=== PATIENT | male | born 1965 | race Caucasian/White ===

== ENCOUNTER → 2020-10-25 15:30 | Outpatient (CLI) | payer BC, SELFPAY ==
[2020-10-25 18:08] LABS: Hematocrit 47.9 % (40-54); Hemoglobin 15.3 g/dL (13.0-16.5); Mean Corp Hgb Conc 31.9 g/dL (32-36); Mean Corpuscular Hgb 28.7 pg (27.0-32.0); Mean Corpuscular Volume 89.7 fL (80-94); Platelet Count 295 K/mm3 (150-450); RBC Distribution Width CV 12.7 % (11.6-14.6); RBC Distribution Width SD 41.5 fl (35.1-43.9); Red Blood Count 5.34 M/mm3 (4.6-6.2); White Blood Count 5.5 K/mm3 (4.4-11.0)
[2020-10-25 18:19] LABS: Erythrocyte Sedimentation Rate 5 mm/hr (0-20)
== END ==
PROVIDERS: Referring Provider Internal Medicine Gastroenterology; Visit Provider Internal Medicine Gastroenterology
DX: K62.5 Hemorrhage of anus and rectum (principal)
CPT/HCPCS: 36415; 85027; 85652

== ENCOUNTER → 2025-02-25 | Outpatient (CLI) | payer BC, SELFPAY ==
--- NOTE | 2025-02-25 08:50 | RAD_ITS ---
PROCEDURE: ABDOMEN SINGLE VIEW 02/25/2025 REASON FOR EXAM: HX OF URINARY CALCULI TECHNIQUE: A single AP view of the abdomen was obtained COMPARISON: None. FINDINGS: RIGHT nephroureteral stent is present. Proximal pigtail appears located inferior to the LEFT renal silhouette likely displaced inferiorly into the proximal ureter. There is some redundancy within the expected location of the bladder. 2 calculi project over the proximal aspect of the nephroureteral stent, measuring up to 9 mm. Additional RIGHT pelvic calculi up to 2 mm could reflect bladder calculi and/or pelvic vascular phleboliths. No visible bowel dilatation. RAD/Abdomen Single View IMPRESSION: 1. Likely inferior displacement + of the nephroureteral stent with proximal pig tail projecting over the expected location of the proximal LEFT ureter. Recommend urologic follow-up. 2. Findings are compatible with ureteral calculi proximally up to 9 mm. Additi onal pelvic calculi projecting over the RIGHT pelvis up to 2 mm could reflect bladder calculi and/or pelvic vascular phleboli ths. Reading Location: [id number]
== END | disposition home or self-care (01) ==
LOC: RAD 08:45
PROVIDERS: Referring Provider Urology; Visit Provider Urology
DX: Z87.442 Personal history of urinary calculi (principal)
CPT/HCPCS: 74018

== ENCOUNTER → 2025-03-01 | Outpatient (CLI) | payer BC, SELFPAY ==
--- NOTE | 2025-02-26 13:30 | URE_PTH ---
PATIENT: CARLOS VILLASEÑOR LOC: [facility] U#:[id number] AGE/SX: 59/M ROOM: RE03/01/[address]: Dr. Carloz Gómez MD : 1965 BED: DIS: 03/01/2025 SPEC #: [id number] RECD: 03/01/25 15:30 STATUS: LAWRENCE JAIR #: [id number] TANISHA: 02/26/25 13:[address]: Carloz Gómez DEPT: SURGICAL PATHOLOGY RECD BY: Ramiro Walters ENTERED: 03/02/25 09:38 SP TYPE: URETER BX OTHR DR: Dr. Lincoln Muniz, DO Tissues: A - Ureter, NOS Procedures: Surgery Specimen Level IV HEADER OPERATION: Left ureteroscopy, laser stone, left ureteral stent, biopsy of ureteral polyp PRE-OP DIAGNOSIS: Calculus of kidney, ureteral polyp TISSUE SUBMITTED: A- Ureteral polyp biopsy MICROSCOPIC DIAGNOSIS A. Ureter, polyp, biopsy: * Non-invasive papillary urothelial carcinoma, low grade - see Comment. * Lamina propria present and not involved. * No muscularis propria present. COMMENT The slides/images were reviewed in intradepartmental consultation by Dr Dieudonne Beauchamp and Dr Dayron Perez ([facility] pathology division, [facility]). MICROSCOPIC DESCRIPTION Slides are reviewed. GROSS DESCRIPTION A. Received in formalin in a container labeled with the patient's name, date of , and ureteral polyp is a 0.2 x 0.2 x 0.2 cm fragment of martinez-pink soft tissue. Submitted in toto in A1. B 03-02-2025 CPT:60772
== END | disposition home or self-care (01) ==
LOC: LABSPEC 16:06
PROVIDERS: Referring Provider Urology; Visit Provider Urology
DX: N20.0 Calculus of kidney (principal); N28.89 Other specified disorders of kidney and ureter
CPT/HCPCS: 88305

== ENCOUNTER 2025-03-17 11:02 | Day surgery (SDC) | payer BC, SELFPAY ==
[2025-03-17] VITALS (12 sets, daily range): BP systolic 118–200; BP diastolic 69–111; PULSE 49–62; RESP 14–16; TEMP 36.4–36.7; O2SAT 94–100; BMI 34.5
--- NOTE | 2025-03-17 11:12 | PRE.ANES_ITS ---
ASA Classification* ASA Classification ASA Classification: 2 Assessment & Plan Anesthesia* Anesthesia Assessment Anesthesia Assessment: Discussed sedation and/or anesthesia options, risks, benefits, and alternatives with patient/parents/legal guardian/POA. Questions invited. The patient/parents/legal guardian/POA seems to understand and agrees to proceed with anesthesia plan. Reviewed the physical assessment, medical history, allergy history and patient home medications list prior to surgery/procedure/anesthetic and documented any changes. Performed airway and anesthesia risk assessments. Anesthesia Type Anesthesia Type: General Anesthesia Focused Assessment* Airway Assessment Mouth opens: >3 cm Mallampati Score: II Focused Labs Anesthesia Preop lab: CBC WBC 5.5 K/mm3 (4.4-11.0) 10/25/20 15:37 10/25/20 RBC 5.34 M/mm3 (4.6-6.2) 10/25/20 15:37 10/25/20 Hgb 15.3 g/dL (13.0-16.5) 10/25/20 15:37 10/25/20 Hct 47.9 % (40-54) 10/25/20 15:37 10/25/20 Plt Count 295 K/mm3 (150-450) 10/25/20 15:37 10/25/20 CHEMISTRY COAG Pre-Assessment Diagnosis/Proposed Procedure Planned Operative Procedure(s): (L) Cysto, Ureteroscopy, Laser tumor and biopsy, possible stent Anesthesia History Anesthesia History - costume draper: Anesthesia History - costume draper Hx Hospitalization Yes: 01/2025 KIDNEY STONE 03/10/25 13:26 Any Problems With Anesthesia No 03/10/25 13:26 Cholinesterase deficiency No 03/10/25 13:26 You/Your Family Experience No 03/10/25 13:26 fever (hyperthermia) with Relationship Recent Exposure to Contagious Disease Does patient have nerve No 03/10/25 13:26 stimulator Patient instructed to have device shut off --Does patient have Pacemaker or ICD? When Was Last Pacemaker Check QUESTION #4 FULL TEXT: You/Your Family Experience fever (hyperthermia) with Anesthesia Last Oral Intake Last Oral intake: Last Oral Intake NPO since Meds taken in AM with sips of water? Meds patient instructed to take am of surgery PONV PONV - costume draper: PONV - costume draper Female No 03/10/25 13:26 HX of Motion Sickness No 03/10/25 13:26 HX of N/V After Surgery No 03/10/25 13:26 Non-Smoker Yes 03/10/25 13:26 Duration of Surgery greater No 03/10/25 13:26 than 60 minutes Number of Risk Factors 1 03/10/25 13:26 PONV Score Low Risk 03/10/25 13:26 Respiratory Assessment Respiratory Assessment - costume draper: Respiratory Tract Infection Hx - costume draper Hx Respiratory Tract Infection No 03/10/25 13:26 STOP Sleep Apnea STOP Sleep Apnea - costume draper: STOP Sleep Apnea - costume draper Hx Hypertension No 03/10/25 13:26 Hx Sleep Apnea No 03/10/25 13:26 CPAP BIPAP Do you snore loudly (louder No 03/10/25 13:26 than talking or can be heard Do you often feel tired/ No 03/10/25 13:26 fatigued/ sleepy during daytime? Has anyone observed you stop No 03/10/25 13:26 breathing during sleep? STOP Results Negative 03/10/25 13:26 QUESTION #5 FULL TEXT : Do you snore loudly (louder than talking or can be heard through closed doors)? Tobacco Use History Tobacco Use History - costume draper: Tobacco Use History - costume draper Tobacco Use Smoking Status Never smoker 03/10/25 13:26 Hx Tobacco Use No 03/10/25 13:26 Years Smoking Packs Smoked per Day Smoking Cessation Date was within the last 15 years Hx Smoking Cessation Date Hx Smoking Cessation Counseling Hematologic Medial History Hematologic Hx - costume draper: Hematologic Medical Hx - straightener hand Hx of Blood Transfusion No 03/10/25 13:26 Hx of Transfusion in last 3 No 03/10/25 13:26 Months Date of Last Transfusion (if within last 3 months) Ever experience any problems No 03/10/25 13:26 with transfusion(s)? Specify any problems Hx of Preganancy in last 3 N/A 03/10/25 13:26 Months Nurse Filling Out Transfusion NBUCHER 03/10/25 13:26 & Questions: Date: 03/10/25 03/10/25 13:26 Time: 13:03/10/25 13:26 Patient unable to answer at this time (ie. confused, unrespo /Reproduction History /Reproductive History - costume draper: /Reproductive Hx- costume draper Hx Now No 03/10/25 13:26 Gestational Age (in weeks): EDC: Hx Hx Para Hx Section SAB No 03/10/25 13:26 Active Medications Active Medications: Current Medications Generic Name Dose Route Start Last Admin Trade Name Freq PRN Reason Stop Dose Admin Cefazolin Sodium 2 gm/ Sodium 110 mls @ 150 mls/hr 03/17/25 13:15 Chloride IV 03/17/25 13:58 INTRAOP ONE Lactated Ringer's 1,000 mls @ 15 mls/hr 03/17/25 11:15 IV .Q48H SONIA PFSH Medical History Wears glasses Kidney stone Non-smoker History of stress test Home Medications ?Medication ?Instructions ?Recorded ?Last Taken ?Type NK 03/10/25 Unknown History Allergy/AdvReac Type Severity Reaction Status Date / Time hydromorphone (From Dilaudid) AdvReac Intermediate LIGHTHEADED Verified 03/10/25 13:25 /FLUSHED Penicillins (PCN) AdvReac Intermediate Rash Verified 03/10/25 13:25 Surgical History History of cystoscopy History of lithotripsy Social History Smoking Status: Never smoker Review of Systems (Anesthesia) ROS Narrative System reviewed and no additional complaints, except as documented.
[2025-03-17] MEDS: Lactated Ringers 1,000 ML 15 ML IV (11:43)
--- NOTE | 2025-03-17 13:15 | KI_PTH ---
PATIENT: CARLOS VILLASEÑOR [place] [facility] [place] U[place][id number] AGE/SX: 59/M ROOM: RE03/17/[address]: Dr. Carloz Gómez MD : 1965 BED: DIS: 03/17/2025 SPEC #: [id number] RECD: 03/17/25 16:03 STATUS: LAWRENCE ADAM #: [id number] TANISHA: 03/17/25 13:[address]: Carloz Gómez DEPT: SURGICAL PATHOLOGY RECD BY: Katheryn Mcclain ENTERED: 03/18/25 07:37 SP TYPE: KIDNEY BX OTHR DR: Dr. Lincoln Muniz, DO Tissues: Kidney, NOS Procedures: Surgery Specimen Level IV HEADER OPERATION: Ureteroscopy, laser fulguration and left renal pelvis PRE-OP DIAGNOSIS: Left noninvasive ureteral carcinoma TISSUE SUBMITTED: A- Left renal pelvis tumor biopsy MICROSCOPIC DIAGNOSIS A. Left renal pelvis, tumor, biopsy: * Fragment of stromal tissue with marked artifact - see note and Comment. * Note: Assessment of the biopsy is limited by extensive thermal artifact and a more definitive diagnosis cannot be made. COMMENT Selected slides/images were reviewed in intradepartmental consultation by Dr Betito Ramey ([facility] pathology division, [facility]). MICROSCOPIC DESCRIPTION Slides are reviewed. GROSS DESCRIPTION A. Received in formalin in a container labeled with the patient's name, date of , and left renal pelvis tumor biopsy is a tiny, 0.2 x 0.1 x 0.1 cm fragment of martinez-pink soft tissue. Submitted in toto in A1. B 03-18-2025 CPT:27851
--- NOTE | 2025-03-17 14:23 | PCM.HP.STD ---
[facility] - General General Date of Service: 03/17/25 Chief Complaint: Left noninvasive ureteral carcinoma HPI Narrative CARLOS VILLASEÑOR, is a 59 M who presents for endoscopic management of a noninvasive renal pelvis ureteral carcinoma, on prior cystoscopy and laser of a stone he was found to have a tumorous growth inside the left renal pelvis a biopsy at the time was taken and the laser was used to treat the stone the biopsy came back positive so this point going to bring him back to surgery to do a cystoscopy and evaluate the bladder and also do a ureteroscopy evaluate the ureter and will cauterized the ureter with a thulium laser using the cauterization settings. [facility] Medical History Wears glasses Kidney stone Non-smoker History of stress test Home Medications ?Medication ?Instructions ?Recorded ?Last Taken ?Type NK 03/10/25 Unknown History Allergy/AdvReac Type Severity Reaction Status Date / Time hydromorphone (From Dilaudid) AdvReac Intermediate LIGHTHEADED Verified 03/17/25 11:32 /FLUSHED Penicillins (PCN) AdvReac Intermediate Rash Verified 03/17/25 11:32 Surgical History History of cystoscopy History of lithotripsy Social History Smoking Status: Never smoker Vital Signs Vital Signs Vital Signs: 03/17/25 11:32 03/17/25 11:34 Temperature 97.8 F Temperature Source Temporal Pulse Rate 49 L Respiratory Rate 16 Respiratory Pattern Normal Blood Pressure 118/69 Blood Pressure Mean 85 Blood Pressure Source Monitor Blood Pressure Position Semi-Fowlers Blood Pressure Location Left Arm Pulse Ox 97 Oxygen Delivery Method Room Air Weight Weight: 106.141 kg Body Mass Index (BMI) 34.5 Physical Exam Const alert and oriented x3 General Appearance: cooperative HEENT normocephalic and head/scalp atraumatic Eyes PERRL and EOMs intact bilaterally Neck supple, no JVD and no carotid bruits Resp normal respiratory effort, normal air movement and clear to auscultation bilaterally Cardio regular rate and no murmurs GI normal to inspection, nondistended, normoactive bowel sounds and soft to palpation Extremity normal capillary refill General Extremity: no tenderness to palpation of joints or extremities; Negative for edema Skin no rashes or lesions noted and no wounds General Skin Exam: no breakdown Neuro CN's II-XII intact bilaterally Psych affect normal Appearance: appropriate Assessment & Plan Assessment/Plan (1) 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
--- NOTE | 2025-03-17 14:27 | PCM.DC ---
Discharge Instructions Diet Discharge Diet: No restrictions DC O2, CPAP, BIPAP needs Home O2 Discharge instructions: No Dressing / Incision Discharge Activity: Return to Normal Activity and May Not Drive (while taking narcotic pain medications.) Dressing / Incision Call your doctor if you observe: Fever of 101 or Higher Follow Up Care Please Follow Up With: Carloz Gómez MD When: Call [phone] for an appointment Test Results: Test results from this visit will be discussed in further detail at your follow-up appointment, if applicable. Discharge Plan Admission Primary Reason for Your Visit: Endoscopic treatment of ureteral tumor Attending Provider: Carloz Gómez Primary Care Provider: Lincoln Muniz Instructions Print Language: Guyanese Discharge Orders/Prescriptions Prescriptions: New ibuprofen 600 mg tablet 600 mg PO Q6H PRN (Reason: pain) Qty: 20 0RF acetaminophen 500 mg capsule 500 mg PO Q4H PRN (Reason: pain) Qty: 20 0RF Referrals / Follow Up: Carloz Gómez MD [Med Staff - Active Staff] - Lincoln Muniz DO [Primary Care Provider] - Disposition Disposition (needs filled in before D/C Order can be placed): Home, Self Care
--- NOTE | 2025-03-17 15:17 | OP.PCM_ITS ---
Operative Report (Standard) Operative Information Date of Procedure: 03/17/25 Pre-Operative Diagnosis: Tumor, transitional cell carcinoma in the left renal pelvis Post-Operative Diagnosis: Transitional cell carcinoma of the left renal pelvis Surgery/Procedure Performed: Cystoscopy, left ureteroscopy, biopsy of left renal pelvic tumor, laser fulguration of tumor. No stent strategic planning director: No Type of Anesthesia: General RN Documented Start/Stop Times: Operation Date: 03/17/25 13:15 Case Time Into Pre-Op 03/17/25 11:08 Out of Pre-Op 03/17/25 14:30 Anesthesia Start 03/17/25 14:48 Into Room 03/17/25 14:48 Procedure Start 03/17/25 15:00 Procedure Start Time: 15:00 Procedure Stop Time: 15:18 Select all DRAINS/GRAFTS/IMPLANTS that apply: None Estimated Blood Loss: 0 Specimen collected: Yes Description of specimen(s) removed: Biopsy from left renal pelvic tumor Description of surgery: This is a 59-year-old gentleman who had a stone in the left kidney the stone did not break after shockwave lithotripsy so at the taken the surgery for ureteroscopy and laser the stone was lasered completely but during the ureteroscopy I found that there was a polyp mass in the left renal pelvis this a biopsy was taken and the biopsy came back positive with low-grade carcinomas of the transitional cell carcinoma lining. So organ to bring him back to surgery to do a ureteroscopy again possible biopsy and laser fulguration of this mass. Patient was taken back to surgery after smooth induction of anesthesia went inside the bladder after he was prepped and draped in usual sterile fashion with a 17 Czech rigid cystourethroscope entire bladder was clear of any tumors trigone was normal left and right ureteral orifice normal no tumors or stones seen within the bladder, I then went in with a flexible ureteroscope into the bladder and using the assistance of a Glidewire and cannulated the left ureteral orifice I then went up the ureter and inspected the ureter there were no tumors along the course of the ureter then I once I got up to the renal pelvis immediately I found a polyp the mass in the renal pelvis a biopsy was taken at t his appeared to be like a low-grade noninvasive superficial tumor, I then used a 200 ?m thulium laser fiber settings were sent to ablation and incise and then the tumor was completely obliterated with the laser. There was a small little fragment left after the lasering a biopsy was taken of this and then I lasered completely the tumor. There was no more bleeding from the laser site and the fulguration site I then worked my way down the ureter and removed the biopsy I went back up a second time to inspect there was no bleeding from the fulguration site or point way all the way down the ureter no other tumors were seen no other tumor locations were found. Cystoscope was removed bladder was emptied and will follow-up in 2 weeks to review the results of the biopsy and then [place] that the continue with surveillance ureteroscopy every 3 months. Surgical Findings: Tumor in left renal pelvis appears superficial noninvasive Complications Complications: No Admit VTE Documentation VTE Present on Admission: No VTE Mechan Device Prophylaxis: SCD's VTE Pharm Prophylaxis ordered?: No
--- NOTE | 2025-03-17 15:30 | PCM.POST.ANE ---
Anesthesia: Postop Eval I Current Vital Signs Temperature: 98 F Pulse Rate: 62 Blood Pressure: 130/86 Respiratory Rate: 16 Pulse Ox: 94 Assessment Airway patent: Yes Spontaneous unlabored respirations: Yes nausea: No Vomiting: No Anesthesia Complication: No Fluid Hydration Crystalloid volume administer (ml): 400 Total IV fluid infused: 400 Progress Note Anesthesia document: Postop Eval 1 completed: Yes
[2025-03-17] MEDS: Ketorolac 15 MG/ML Vial IV (16:17)
--- NOTE | 2025-03-17 16:23 | POSTOPAN2_ITS ---
Anesthesia Postop Eval I Sum Postop Eval Completion status Anesthesia document: Postop Eval 1 completed: Yes Anesthesia Postop Eval I Summary Anesthesia Postop Eval I Summary: Anesthesia Postop Eval I: Assessment Summary Airway patent Yes 03/17/25 15:30 OPERATIONS AND INTELLIGENCE ASSISTANT.TNES Spontaneous unlabored Yes 03/17/25 15:30 OPERATIONS AND INTELLIGENCE ASSISTANT.TNES respirations Mental status nausea No 03/17/25 15:30 OPERATIONS AND INTELLIGENCE ASSISTANT.TNES Vomiting No 03/17/25 15:30 OPERATIONS AND INTELLIGENCE ASSISTANT.TNES Anesthesia Postop Eval I: Fluid Summary Crystalloid volume administer 400 03/17/25 15:30 OPERATIONS AND INTELLIGENCE ASSISTANT.TNES (ml) Colloids volume administered ( ml) Blood Product volume administered (ml) Total IV fluid infused 400 03/17/25 15:30 OPERATIONS AND INTELLIGENCE ASSISTANT.TNES Anesthesia Postop Eval I: Summary Notes Anesthesia Complication No 03/17/25 15:30 OPERATIONS AND INTELLIGENCE ASSISTANT.TNES Anesthesia Complication Comment: Post-operative progress note Anesthesia: Postop Eval II Evaluation Mental status: Awake Pain Level: 0 nausea: No Vomiting: No
--- NOTE | 2025-03-17 16:23 | PCM.POSTANE2 ---
Anesthesia Postop Eval I Sum Postop Eval Completion status Anesthesia document: Postop Eval 1 completed: Yes Anesthesia Postop Eval I Summary Anesthesia Postop Eval I Summary: Anesthesia Postop Eval I: Assessment Summary Airway patent Yes 03/17/25 15:30 DEVELOPMENTAL MATHEMATICS INSTRUCTOR.TNES Spontaneous unlabored Yes 03/17/25 15:30 DEVELOPMENTAL MATHEMATICS INSTRUCTOR.TNES respirations Mental status nausea No 03/17/25 15:30 DEVELOPMENTAL MATHEMATICS INSTRUCTOR.TNES Vomiting No 03/17/25 15:30 DEVELOPMENTAL MATHEMATICS INSTRUCTOR.TNES Anesthesia Postop Eval I: Fluid Summary Crystalloid volume administer 400 03/17/25 15:30 DEVELOPMENTAL MATHEMATICS INSTRUCTOR.TNES (ml) Colloids volume administered ( ml) Blood Product volume administered (ml) Total IV fluid infused 400 03/17/25 15:30 DEVELOPMENTAL MATHEMATICS INSTRUCTOR.TNES Anesthesia Postop Eval I: Summary Notes Anesthesia Complication No 03/17/25 15:30 DEVELOPMENTAL MATHEMATICS INSTRUCTOR.TNES Anesthesia Complication Comment: Post-operative progress note Anesthesia: Postop Eval II Evaluation Mental status: Awake Pain Level: 0 nausea: No Vomiting: No
== END 2025-03-17 17:02 | disposition home or self-care (01) ==
LOC: SDC 11:02 → AC 11:14
PROVIDERS: Referring Provider Urology; Visit Provider Urology
PROC: 0TJ98ZZ Inspection of Ureter, Via Natural or Artificial Opening Endoscopic (ICD-10-PCS; CPT 52352; principal; 2025-03-17 13:05)
DX: C65.2 Malignant neoplasm of left renal pelvis (principal); Z87.442 Personal history of urinary calculi
CPT/HCPCS: 52354; 00910; 88305; C1769; J2405